=== PATIENT | male | born 1955 | race Caucasian/White ===

== ENCOUNTER 2022-11-23 19:56 | Inpatient (IN) | payer OTHER, MEDICAID ==
[~2022-11-23] VITALS: Ht 172.7 cm; Wt 74.4 kg
[2022-11-23 20:00] VITALS: BP_SYST 103; PULSE 172; RESP 38; TEMP 100.1; O2SAT 98
[2022-11-23] MEDS ORDERED: NACL 0.9% 1,000 ML IV ONE ×2 (20:15→23:00)
[2022-11-23] MEDS ORDERED: PANTOPRAZOLE SODIUM 40 MG/VIAL (PROTONIX) IVP ONE (20:15)
[2022-11-23] MEDS ORDERED: MEROPENEM 1 GM IVPB PREMIX 50 ML IV ONE (20:15)
[2022-11-23] MEDS ORDERED: MEROPENEM 1 GM VIAL IV ONE (20:54)
[2022-11-23 20:59] LABS: BASOPHILS % (AUTO) 0.3 % (0.0-2.0); EOSINOPHILS % (AUTO) 0.4 % (0.0-4.0); HEMATOCRIT 29.4 % (36-54); HEMOGLOBIN 9.3 g/dL (14.0-18.0); LYMPHOCYTES # (AUTO) 0.4 K/uL (1.0-5.5); LYMPHOCYTES % (AUTO) 4.4 % (20.5-51.5); MEAN CORPUSCULAR HEMOGLOBIN 27 pg (27-31); MEAN CORPUSCULAR HGB CONC 32 % (32-36); MEAN CORPUSCULAR VOLUME 86 fL (79.0-98.0); MONOCYTES # (AUTO) 0.1 K/uL (0.0-1.0); MONOCYTES % (AUTO) 0.6 % (1.7-9.3); NEUTROPHILS # (AUTO) 9.5 K/uL (1.8-7.7); NEUTROPHILS % (AUTO) 94.3 % (40.0-70.0); PLATELET COUNT (AUTO) 347 K/uL (130-430); RED BLOOD CELL COUNT(AUTO) 3.42 MIL/uL (4.2-6.2); RED CELL DISTRIBUTION WIDTH 17.8 % (9.0-15.0)
[2022-11-23 21:17] LABS: ALBUMIN 2.3 g/dL (3.4-4.8); CREATININE 0.91 mg/dL (0.55-1.30); TOTAL BILIRUBIN 0.9 mg/dL (0.0-1.0)
[2022-11-23 21:24] LABS: CALCIUM 9.6 mg/dL (8.4-11.0)
[2022-11-23 21:55] LABS: BILIRUBIN,URINE NEGATIVE (NEGATIVE); BLOOD, URINE 3+ (NEGATIVE); CLARITY/URINE TURBID (CLEAR); COLOR,URINE RED (YELLOW); GLUCOSE,URINE NEGATIVE (NEGATIVE); KETONES,URINE NEGATIVE (NEGATIVE); LEUKOCYTE ESTERASE ,URINE 3+ (NEGATIVE); NITRITE, URINE NEGATIVE (NEGATIVE); PH,URINE 6.5 (5.0-8.0); PROTEIN URINE 2+ (NEGATIVE); UROBILINOGEN,URINE 0.2 (0.2-1.0)
[2022-11-23] MEDS ORDERED: NOREPINEPHRINE BITARTRATE 4 MG in NS 246 ML IV ONE (22:00)
[2022-11-23 22:06] LABS: BACTERIA,URINE MODERATE /HPF (None Seen); RBC,URINE >100 /HPF (0-3); WBC,URINE 50-80 /HPF (0-3)
[2022-11-23 22:07] LABS: MUCUS,URINE None Seen /LPF (None Seen)
[2022-11-23] MEDS ORDERED: NOREPINEPHRINE 4 MG/4 ML VIAL IV ONE (22:36)
[2022-11-23] MEDS ORDERED: FAMO20TA8 PO (23:13)
[2022-11-23] MEDS ORDERED: LEVE1000 PO (23:13)
[2022-11-23] MEDS ORDERED: LIP20 PO (23:13)
[2022-11-23] MEDS ORDERED: REGL10 PO (23:13)
[2022-11-23] MEDS ORDERED: BISA-140 PO (23:13)
[2022-11-23] MEDS ORDERED: FER300L PO (23:13)
[2022-11-23] MEDS ORDERED: LANS30CA53 PO (23:13)
[2022-11-23] MEDS ORDERED: MIDO10TA PO (23:13)
[2022-11-23] MEDS ORDERED: METOCLOPRAMIDE HCL 10 MG/10 ML UDC GT PRN (23:30)
[2022-11-23] MEDS ORDERED: INSULIN REGULAR, HUMAN 100 UNITS/ML, 3 ML VIAL (humuLIN R) SUBCUT PRN (23:30)
[2022-11-23] MEDS: MIDODRINE HCL 5 MG TABLET (PROAMATINE) GT SCH (23:30)
[2022-11-23] MEDS ORDERED: BISACODYL 5 MG TABLET.DR (DULCOLAX) GT PRN (23:30)
[2022-11-23] MEDS: levETIRAcetam 500 MG TABLET GT SCH (23:30)
[2022-11-23] MEDS ORDERED: ACETAMINOPHEN 325 MG TABLET GT PRN (23:45)
[2022-11-23 23:55] VITALS: BP_SYST 105; PULSE 103
[2022-11-23 23:57] VITALS: BP_SYST 105; PULSE 103; O2SAT 97
[2022-11-24] VITALS (29 sets, daily range): BP systolic 64–145; PULSE 67–115; RESP 15–21; TEMP 97.7–98.7; O2SAT 94–99
[2022-11-24] MEDS ORDERED: NOREPINEPHRINE 4 MG/4 ML VIAL IV ONE (01:11)
[2022-11-24] MEDS ORDERED: levETIRAcetam 500 MG TABLET ONE (01:35)
[2022-11-24] MEDS ORDERED: PIPERACILLIN/TAZOBACTAM 3.375 GM/VIAL (ZOSYN) IV ONE (02:11)
[2022-11-24 05:10] LABS: BASOPHILS # (AUTO) 0.1 K/uL (0.0-0.2); BASOPHILS % (AUTO) 0.3 % (0.0-2.0); HEMATOCRIT 24.4 % (36-54); HEMOGLOBIN 7.6 g/dL (14.0-18.0); LYMPHOCYTES # (AUTO) 0.6 K/uL (1.0-5.5); LYMPHOCYTES % (AUTO) 1.8 % (20.5-51.5); MEAN CORPUSCULAR HEMOGLOBIN 26 pg (27-31); MEAN CORPUSCULAR HGB CONC 31 % (32-36); MEAN CORPUSCULAR VOLUME 85 fL (79.0-98.0); MONOCYTES # (AUTO) 1.2 K/uL (0.0-1.0); MONOCYTES % (AUTO) 3.8 % (1.7-9.3); NEUTROPHILS # (AUTO) 28.6 K/uL (1.8-7.7); NEUTROPHILS % (AUTO) 94.1 % (40.0-70.0); PLATELET COUNT (AUTO) 234 K/uL (130-430); RED BLOOD CELL COUNT(AUTO) 2.86 MIL/uL (4.2-6.2)
[2022-11-24 05:35] LABS: WHITE BLOOD COUNT (AUTO) 30.4 K/uL (4.8-10.8)
[2022-11-24 05:41] LABS: ALBUMIN 1.9 g/dL (3.4-4.8); CALCIUM 8.1 mg/dL (8.4-11.0); CREATININE 0.82 mg/dL (0.55-1.30); TOTAL BILIRUBIN 0.9 mg/dL (0.0-1.0)
[2022-11-24] MEDS: PIPERACILLIN/TAZO 3.375/DEX-IS 50 ML IV SCH ×4 (06:04→17:30)
[2022-11-24 08:46] LABS: INR 1.1 (0.80-1.20); PROTHROMBIN TIME 11.5 SECS (9.5-12.5)
[2022-11-24] MEDS ORDERED: VANCOMYCIN HCL 1,250 MG in NS 250 ML IV SCH (09:00)
[2022-11-24] MEDS ORDERED: RIVAROXABAN 10 MG TABLET GT SCH (09:00)
[2022-11-24] MEDS: VANCOMYCIN HCL 1,000 MG in NS 250 ML IV SCH ×2 (09:40→21:25)
[2022-11-24] MEDS: levETIRAcetam 500 MG TABLET GT SCH ×2 (09:40→21:23)
[2022-11-24] MEDS: FERROUS SULFATE 300 MG/5 ML UDC GT SCH (09:41)
[2022-11-24] MEDS: ASCORBIC ACID 500 MG TABLET GT SCH ×2 (09:41→21:24)
[2022-11-24] MEDS: FAMOTIDINE 20 MG TABLET GT SCH (09:41)
[2022-11-24] MEDS: DOCUSATE SODIUM 100 MG/10 ML UDC GT SCH ×2 (09:41→21:22)
[2022-11-24] MEDS: ATORVASTATIN 20 MG TABLET GT SCH (09:41)
[2022-11-24] MEDS: LANSOPRAZOLE 30 MG CAPSULE.DR GT SCH (09:41)
[2022-11-24] MEDS: MIDODRINE HCL 5 MG TABLET (PROAMATINE) GT SCH ×3 (09:42→21:24)
[2022-11-24] MEDS: INSULIN GLARGINE 100 UNITS/ML, 10 ML VIAL SUBCUT SCH ×2 (09:59→22:03)
[2022-11-24] MEDS ORDERED: NOREPINEPHRINE BITARTRATE 4 MG in NS 246 ML IV PRN (12:15)
[2022-11-24] MEDS ORDERED: NACL 0.9% 1,000 ML IV ONE (14:15)
[2022-11-24] MEDS: ALBUMIN HUMAN 25% 100 ML IV SCH ×2 (15:11→21:22)
[2022-11-25] VITALS (36 sets, daily range): BP systolic 98–153; PULSE 59–95; RESP 12–20; TEMP 97–98.2; O2SAT 94–99
[2022-11-25] MEDS: PIPERACILLIN/TAZO 3.375/DEX-IS 50 ML IV SCH ×5 (01:06→23:58)
[2022-11-25 04:49] LABS: BASOPHILS % (AUTO) 0.2 % (0.0-2.0); EOSINOPHILS # (AUTO) 0.1 K/uL (0.0-0.4); EOSINOPHILS % (AUTO) 0.5 % (0.0-4.0); HEMATOCRIT 22.1 % (36-54); LYMPHOCYTES # (AUTO) 1.3 K/uL (1.0-5.5); LYMPHOCYTES % (AUTO) 7.5 % (20.5-51.5); MEAN CORPUSCULAR HEMOGLOBIN 27 pg (27-31); MEAN CORPUSCULAR HGB CONC 32 % (32-36); MEAN CORPUSCULAR VOLUME 84 fL (79.0-98.0); MONOCYTES # (AUTO) 0.8 K/uL (0.0-1.0); MONOCYTES % (AUTO) 4.4 % (1.7-9.3); NEUTROPHILS # (AUTO) 15.1 K/uL (1.8-7.7); NEUTROPHILS % (AUTO) 87.4 % (40.0-70.0); PLATELET COUNT (AUTO) 184 K/uL (130-430); RED BLOOD CELL COUNT(AUTO) 2.62 MIL/uL (4.2-6.2); RED CELL DISTRIBUTION WIDTH 17.6 % (9.0-15.0); WHITE BLOOD COUNT (AUTO) 17.3 K/uL (4.8-10.8)
[2022-11-25] MEDS: ALBUMIN HUMAN 25% 100 ML IV SCH (05:11)
[2022-11-25 05:34] LABS: ALBUMIN 2.6 g/dL (3.4-4.8); CALCIUM 8.3 mg/dL (8.4-11.0); CREATININE 0.78 mg/dL (0.55-1.30); TOTAL BILIRUBIN 1.1 mg/dL (0.0-1.0)
[2022-11-25] MEDS ORDERED: POTASSIUM CHLORIDE 20 MEQ/PKT PACKET GT ONE (06:30)
[2022-11-25] MEDS ORDERED: POTASSIUM CHLORIDE 40 MEQ in NS 250 ML IV ONE (06:30)
[2022-11-25] MEDS: INSULIN GLARGINE 100 UNITS/ML, 10 ML VIAL SUBCUT SCH ×2 (09:00→21:00)
[2022-11-25] MEDS: FERROUS SULFATE 300 MG/5 ML UDC GT SCH (10:00)
[2022-11-25] MEDS: DOCUSATE SODIUM 100 MG/10 ML UDC GT SCH ×2 (10:01→21:57)
[2022-11-25] MEDS: LANSOPRAZOLE 30 MG CAPSULE.DR GT SCH (10:02)
[2022-11-25] MEDS: ASCORBIC ACID 500 MG TABLET GT SCH ×2 (10:02→21:59)
[2022-11-25] MEDS: levETIRAcetam 500 MG TABLET GT SCH ×2 (10:02→21:57)
[2022-11-25] MEDS: ATORVASTATIN 20 MG TABLET GT SCH (10:02)
[2022-11-25] MEDS ORDERED: POTASSIUM CHLORIDE 20 MEQ/PKT PACKET ONE ×2 (10:02→12:32)
[2022-11-25] MEDS: FAMOTIDINE 20 MG TABLET GT SCH (10:02)
[2022-11-25] MEDS: MIDODRINE HCL 5 MG TABLET (PROAMATINE) GT SCH ×3 (10:03→21:58)
[2022-11-25] MEDS ORDERED: POTASSIUM CHLORIDE 20 MEQ in NACL 0.9% 1,000 ML IV SCH (15:00)
[2022-11-25 17:28] LABS: BASOPHILS % (AUTO) 0.3 % (0.0-2.0); EOSINOPHILS # (AUTO) 0.1 K/uL (0.0-0.4); EOSINOPHILS % (AUTO) 0.5 % (0.0-4.0); HEMATOCRIT 29.3 % (36-54); HEMOGLOBIN 9.2 g/dL (14.0-18.0); LYMPHOCYTES # (AUTO) 0.9 K/uL (1.0-5.5); MEAN CORPUSCULAR HEMOGLOBIN 27 pg (27-31); MEAN CORPUSCULAR HGB CONC 31 % (32-36); MEAN CORPUSCULAR VOLUME 86 fL (79.0-98.0); MONOCYTES # (AUTO) 0.4 K/uL (0.0-1.0); MONOCYTES % (AUTO) 3.4 % (1.7-9.3); NEUTROPHILS # (AUTO) 11.7 K/uL (1.8-7.7); NEUTROPHILS % (AUTO) 88.8 % (40.0-70.0); PLATELET COUNT (AUTO) 173 K/uL (130-430); RED BLOOD CELL COUNT(AUTO) 3.41 MIL/uL (4.2-6.2); RED CELL DISTRIBUTION WIDTH 16.7 % (9.0-15.0); WHITE BLOOD COUNT (AUTO) 13.2 K/uL (4.8-10.8)
[2022-11-25 17:49] LABS: ALBUMIN 2.5 g/dL (3.4-4.8); CALCIUM 8.4 mg/dL (8.4-11.0); CREATININE 0.69 mg/dL (0.55-1.30); TOTAL BILIRUBIN 1.3 mg/dL (0.0-1.0)
[2022-11-26] VITALS (35 sets, daily range): BP systolic 106–134; PULSE 53–97; RESP 20–35; TEMP 97–98.1; O2SAT 95–98
[2022-11-26 05:06] LABS: BASOPHILS % (AUTO) 0.4 % (0.0-2.0); EOSINOPHILS # (AUTO) 0.2 K/uL (0.0-0.4); EOSINOPHILS % (AUTO) 2.1 % (0.0-4.0); HEMATOCRIT 31.4 % (36-54); HEMOGLOBIN 10.1 g/dL (14.0-18.0); LYMPHOCYTES # (AUTO) 1.3 K/uL (1.0-5.5); LYMPHOCYTES % (AUTO) 12.3 % (20.5-51.5); MEAN CORPUSCULAR HEMOGLOBIN 28 pg (27-31); MEAN CORPUSCULAR HGB CONC 32 % (32-36); MEAN CORPUSCULAR VOLUME 86 fL (79.0-98.0); MONOCYTES # (AUTO) 0.4 K/uL (0.0-1.0); MONOCYTES % (AUTO) 4.2 % (1.7-9.3); NEUTROPHILS # (AUTO) 8.6 K/uL (1.8-7.7); PLATELET COUNT (AUTO) 176 K/uL (130-430); RED BLOOD CELL COUNT(AUTO) 3.66 MIL/uL (4.2-6.2); RED CELL DISTRIBUTION WIDTH 16.5 % (9.0-15.0); WHITE BLOOD COUNT (AUTO) 10.6 K/uL (4.8-10.8)
[2022-11-26 05:36] LABS: ALBUMIN 2.3 g/dL (3.4-4.8); CALCIUM 8.4 mg/dL (8.4-11.0); CREATININE 0.7 mg/dL (0.55-1.30); TOTAL BILIRUBIN 1.5 mg/dL (0.0-1.0)
[2022-11-26] MEDS: INSULIN GLARGINE 100 UNITS/ML, 10 ML VIAL SUBCUT SCH ×2 (09:00→22:19)
[2022-11-26] MEDS: DOCUSATE SODIUM 100 MG/10 ML UDC GT SCH ×2 (09:38→21:00)
[2022-11-26] MEDS: FAMOTIDINE 20 MG TABLET GT SCH (09:38)
[2022-11-26] MEDS: ATORVASTATIN 20 MG TABLET GT SCH (09:38)
[2022-11-26] MEDS: FERROUS SULFATE 300 MG/5 ML UDC GT SCH (09:38)
[2022-11-26] MEDS: levETIRAcetam 500 MG TABLET GT SCH ×2 (09:38→22:16)
[2022-11-26] MEDS: LANSOPRAZOLE 30 MG CAPSULE.DR GT SCH (09:38)
[2022-11-26] MEDS: MIDODRINE HCL 5 MG TABLET (PROAMATINE) GT SCH ×3 (09:38→22:17)
[2022-11-26] MEDS: ASCORBIC ACID 500 MG TABLET GT SCH ×2 (09:38→22:17)
[2022-11-26] MEDS: PIPERACILLIN/TAZO 3.375/DEX-IS 50 ML IV SCH (12:42)
[2022-11-26] MEDS: MEROPENEM 1 GM in NS 100 ML IV SCH ×2 (14:22→22:20)
[2022-11-26] MEDS: 0.45% NACL 1,000 ML IV SCH (14:23)
[2022-11-27] VITALS (37 sets, daily range): BP systolic 121–167; PULSE 53–98; RESP 20–23; TEMP 97.6–98.4; O2SAT 94–99
[2022-11-27] MEDS: 0.45% NACL 1,000 ML IV SCH ×3 (00:15→21:05)
[2022-11-27 05:28] LABS: BASOPHILS # (AUTO) 0.1 K/uL (0.0-0.2); BASOPHILS % (AUTO) 0.5 % (0.0-2.0); EOSINOPHILS # (AUTO) 0.3 K/uL (0.0-0.4); EOSINOPHILS % (AUTO) 3.2 % (0.0-4.0); HEMATOCRIT 31.5 % (36-54); HEMOGLOBIN 10.2 g/dL (14.0-18.0); LYMPHOCYTES # (AUTO) 1.7 K/uL (1.0-5.5); LYMPHOCYTES % (AUTO) 17.7 % (20.5-51.5); MEAN CORPUSCULAR HEMOGLOBIN 28 pg (27-31); MEAN CORPUSCULAR HGB CONC 32 % (32-36); MEAN CORPUSCULAR VOLUME 85 fL (79.0-98.0); MONOCYTES # (AUTO) 0.5 K/uL (0.0-1.0); NEUTROPHILS # (AUTO) 7.1 K/uL (1.8-7.7); NEUTROPHILS % (AUTO) 73.6 % (40.0-70.0); PLATELET COUNT (AUTO) 204 K/uL (130-430); RED BLOOD CELL COUNT(AUTO) 3.69 MIL/uL (4.2-6.2); RED CELL DISTRIBUTION WIDTH 16.5 % (9.0-15.0); WHITE BLOOD COUNT (AUTO) 9.7 K/uL (4.8-10.8)
[2022-11-27] MEDS: MEROPENEM 1 GM in NS 100 ML IV SCH ×3 (06:01→21:07)
[2022-11-27 06:15] LABS: ALBUMIN 2.2 g/dL (3.4-4.8); CALCIUM 8.5 mg/dL (8.4-11.0); CREATININE 0.68 mg/dL (0.55-1.30); TOTAL BILIRUBIN 1.5 mg/dL (0.0-1.0)
[2022-11-27 06:49] LABS: TOTAL IRON BIND. CAPACITY 175 ug/dL (250-450)
[2022-11-27] MEDS: ATORVASTATIN 20 MG TABLET GT SCH (08:21)
[2022-11-27] MEDS: DOCUSATE SODIUM 100 MG/10 ML UDC GT SCH ×2 (08:21→21:06)
[2022-11-27] MEDS: FAMOTIDINE 20 MG TABLET GT SCH (08:21)
[2022-11-27] MEDS: LANSOPRAZOLE 30 MG CAPSULE.DR GT SCH (08:21)
[2022-11-27] MEDS: FERROUS SULFATE 300 MG/5 ML UDC GT SCH (08:21)
[2022-11-27] MEDS: ASCORBIC ACID 500 MG TABLET GT SCH ×2 (08:21→21:06)
[2022-11-27] MEDS: levETIRAcetam 500 MG TABLET GT SCH ×2 (08:21→21:06)
[2022-11-27] MEDS: MIDODRINE HCL 5 MG TABLET (PROAMATINE) GT SCH ×3 (08:21→21:06)
[2022-11-27] MEDS: INSULIN GLARGINE 100 UNITS/ML, 10 ML VIAL SUBCUT SCH ×2 (08:34→22:02)
[2022-11-27] MEDS ORDERED: POTASSIUM CHLORIDE 20 MEQ/PKT PACKET PO ONE (10:00)
[2022-11-28] VITALS (36 sets, daily range): BP systolic 126–173; PULSE 67–105; RESP 19–28; TEMP 97.6–98; O2SAT 96–100
[2022-11-28 05:38] LABS: BASOPHILS % (AUTO) 0.4 % (0.0-2.0); EOSINOPHILS # (AUTO) 0.2 K/uL (0.0-0.4); HEMATOCRIT 34.1 % (36-54); HEMOGLOBIN 10.8 g/dL (14.0-18.0); LYMPHOCYTES # (AUTO) 1.5 K/uL (1.0-5.5); LYMPHOCYTES % (AUTO) 18.2 % (20.5-51.5); MEAN CORPUSCULAR HEMOGLOBIN 27 pg (27-31); MEAN CORPUSCULAR HGB CONC 32 % (32-36); MEAN CORPUSCULAR VOLUME 86 fL (79.0-98.0); MONOCYTES # (AUTO) 0.4 K/uL (0.0-1.0); MONOCYTES % (AUTO) 5.1 % (1.7-9.3); NEUTROPHILS # (AUTO) 6.3 K/uL (1.8-7.7); NEUTROPHILS % (AUTO) 74.3 % (40.0-70.0); PLATELET COUNT (AUTO) 197 K/uL (130-430); RED BLOOD CELL COUNT(AUTO) 3.99 MIL/uL (4.2-6.2); RED CELL DISTRIBUTION WIDTH 16.3 % (9.0-15.0); WHITE BLOOD COUNT (AUTO) 8.5 K/uL (4.8-10.8)
[2022-11-28 06:01] LABS: ALBUMIN 2.2 g/dL (3.4-4.8); CALCIUM 8.6 mg/dL (8.4-11.0); CREATININE 0.63 mg/dL (0.55-1.30); TOTAL BILIRUBIN 1.1 mg/dL (0.0-1.0)
[2022-11-28] MEDS: MEROPENEM 1 GM in NS 100 ML IV SCH ×3 (06:12→21:53)
[2022-11-28] MEDS: 0.45% NACL 1,000 ML IV SCH ×2 (07:14→15:58)
[2022-11-28 08:07] LABS: FERRITIN 792 ng/mL (30-400)
[2022-11-28] MEDS: levETIRAcetam 500 MG TABLET GT SCH ×2 (08:52→21:53)
[2022-11-28] MEDS: ATORVASTATIN 20 MG TABLET GT SCH (08:52)
[2022-11-28] MEDS: FERROUS SULFATE 300 MG/5 ML UDC GT SCH (08:52)
[2022-11-28] MEDS: FAMOTIDINE 20 MG TABLET GT SCH (08:52)
[2022-11-28] MEDS: LANSOPRAZOLE 30 MG CAPSULE.DR GT SCH (08:52)
[2022-11-28] MEDS: ASCORBIC ACID 500 MG TABLET GT SCH ×2 (08:52→21:53)
[2022-11-28] MEDS: DOCUSATE SODIUM 100 MG/10 ML UDC GT SCH ×2 (08:52→21:53)
[2022-11-28] MEDS: INSULIN GLARGINE 100 UNITS/ML, 10 ML VIAL SUBCUT SCH ×2 (08:53→21:54)
[2022-11-28] MEDS: BALSAM PERU/CASTOR OIL 56.7 GM OINT...G. TP SCH (08:54)
[2022-11-28] MEDS: MIDODRINE HCL 5 MG TABLET (PROAMATINE) GT SCH (09:00)
[2022-11-28 10:07] LABS: FOLATE (FOLIC ACID) >20.0 ng/mL (>3.0)
[2022-11-28] MEDS ORDERED: LOSARTAN POTASSIUM 50 MG TABLET (COZAAR) PO ONE (12:00)
[2022-11-28] MEDS: VANCOMYCIN HCL 1,250 MG in NS 250 ML IV SCH (15:03)
[2022-11-28] MEDS ORDERED: LOSARTAN POTASSIUM 50 MG TABLET (COZAAR) PO SCH (21:00)
[2022-11-29] VITALS (36 sets, daily range): BP systolic 97–148; PULSE 68–103; RESP 15–28; TEMP 97.5–98.1; O2SAT 96–99
[2022-11-29] MEDS ORDERED: LOSARTAN POTASSIUM 50 MG TABLET (COZAAR) GT PRN
[2022-11-29] MEDS: 0.45% NACL 1,000 ML IV SCH ×2 (01:09→12:05)
[2022-11-29] MEDS: VANCOMYCIN HCL 1,250 MG in NS 250 ML IV SCH ×2 (02:48→15:20)
[2022-11-29 05:27] LABS: BASOPHILS % (AUTO) 0.4 % (0.0-2.0); CALCIUM 8.2 mg/dL (8.4-11.0); CREATININE 0.8 mg/dL (0.55-1.30); EOSINOPHILS # (AUTO) 0.2 K/uL (0.0-0.4); EOSINOPHILS % (AUTO) 2.2 % (0.0-4.0); HEMATOCRIT 32.3 % (36-54); HEMOGLOBIN 10.3 g/dL (14.0-18.0); LYMPHOCYTES # (AUTO) 1.7 K/uL (1.0-5.5); LYMPHOCYTES % (AUTO) 18.7 % (20.5-51.5); MEAN CORPUSCULAR HEMOGLOBIN 27 pg (27-31); MEAN CORPUSCULAR HGB CONC 32 % (32-36); MEAN CORPUSCULAR VOLUME 86 fL (79.0-98.0); MONOCYTES # (AUTO) 0.5 K/uL (0.0-1.0); MONOCYTES % (AUTO) 6.1 % (1.7-9.3); NEUTROPHILS # (AUTO) 6.5 K/uL (1.8-7.7); NEUTROPHILS % (AUTO) 72.6 % (40.0-70.0); PLATELET COUNT (AUTO) 191 K/uL (130-430); RED BLOOD CELL COUNT(AUTO) 3.77 MIL/uL (4.2-6.2); RED CELL DISTRIBUTION WIDTH 16.6 % (9.0-15.0)
[2022-11-29] MEDS: MEROPENEM 1 GM in NS 100 ML IV SCH ×3 (05:40→22:27)
[2022-11-29] MEDS: DOCUSATE SODIUM 100 MG/10 ML UDC GT SCH ×2 (08:20→21:13)
[2022-11-29] MEDS: LANSOPRAZOLE 30 MG CAPSULE.DR GT SCH (08:21)
[2022-11-29] MEDS: levETIRAcetam 500 MG TABLET GT SCH ×2 (08:21→21:12)
[2022-11-29] MEDS: FERROUS SULFATE 300 MG/5 ML UDC GT SCH (08:21)
[2022-11-29] MEDS: FAMOTIDINE 20 MG TABLET GT SCH (08:22)
[2022-11-29] MEDS: ATORVASTATIN 20 MG TABLET GT SCH (08:22)
[2022-11-29] MEDS: BALSAM PERU/CASTOR OIL 56.7 GM OINT...G. TP SCH (08:23)
[2022-11-29] MEDS: ASCORBIC ACID 500 MG TABLET GT SCH ×2 (08:23→21:13)
[2022-11-29] MEDS: INSULIN GLARGINE 100 UNITS/ML, 10 ML VIAL SUBCUT SCH ×2 (08:26→21:17)
[2022-11-30] VITALS (34 sets, daily range): BP systolic 113–149; PULSE 66–97; RESP 14–22; TEMP 97–97.8; O2SAT 95–100
[2022-11-30] MEDS: VANCOMYCIN HCL 1,250 MG in NS 250 ML IV SCH ×2 (03:30→15:21)
[2022-11-30 04:16] LABS: BASOPHILS % (AUTO) 0.3 % (0.0-2.0); EOSINOPHILS # (AUTO) 0.3 K/uL (0.0-0.4); EOSINOPHILS % (AUTO) 4.1 % (0.0-4.0); HEMATOCRIT 31.5 % (36-54); HEMOGLOBIN 10.1 g/dL (14.0-18.0); LYMPHOCYTES # (AUTO) 1.5 K/uL (1.0-5.5); MEAN CORPUSCULAR HEMOGLOBIN 28 pg (27-31); MEAN CORPUSCULAR HGB CONC 32 % (32-36); MEAN CORPUSCULAR VOLUME 86 fL (79.0-98.0); MONOCYTES # (AUTO) 0.5 K/uL (0.0-1.0); MONOCYTES % (AUTO) 5.8 % (1.7-9.3); NEUTROPHILS # (AUTO) 5.7 K/uL (1.8-7.7); NEUTROPHILS % (AUTO) 70.8 % (40.0-70.0); PLATELET COUNT (AUTO) 182 K/uL (130-430); RED BLOOD CELL COUNT(AUTO) 3.66 MIL/uL (4.2-6.2); RED CELL DISTRIBUTION WIDTH 16.2 % (9.0-15.0)
[2022-11-30 04:34] LABS: CALCIUM 8.3 mg/dL (8.4-11.0); CREATININE 0.68 mg/dL (0.55-1.30)
[2022-11-30] MEDS: MEROPENEM 1 GM in NS 100 ML IV SCH ×3 (06:11→21:38)
[2022-11-30] MEDS: 0.45% NACL 1,000 ML IV SCH (07:43)
[2022-11-30] MEDS: DOCUSATE SODIUM 100 MG/10 ML UDC GT SCH ×2 (08:08→21:37)
[2022-11-30] MEDS: levETIRAcetam 500 MG TABLET GT SCH ×2 (08:09→21:37)
[2022-11-30] MEDS: FAMOTIDINE 20 MG TABLET GT SCH (08:09)
[2022-11-30] MEDS: ATORVASTATIN 20 MG TABLET GT SCH (08:09)
[2022-11-30] MEDS: FERROUS SULFATE 300 MG/5 ML UDC GT SCH (08:09)
[2022-11-30] MEDS: LANSOPRAZOLE 30 MG CAPSULE.DR GT SCH (08:09)
[2022-11-30] MEDS: ASCORBIC ACID 500 MG TABLET GT SCH ×2 (08:09→21:37)
[2022-11-30] MEDS: BALSAM PERU/CASTOR OIL 56.7 GM OINT...G. TP SCH (08:11)
[2022-11-30] MEDS: INSULIN GLARGINE 100 UNITS/ML, 10 ML VIAL SUBCUT SCH ×2 (08:11→21:41)
[2022-11-30] MEDS ORDERED: POTASSIUM CHLORIDE 20 MEQ/PKT PACKET GT ONE (15:45)
[2022-12-01] VITALS (28 sets, daily range): BP systolic 119–158; PULSE 70–113; RESP 14–27; TEMP 96.6–97.7; O2SAT 93–99
[2022-12-01 05:09] LABS: BASOPHILS % (AUTO) 0.4 % (0.0-2.0); EOSINOPHILS # (AUTO) 0.3 K/uL (0.0-0.4); HEMATOCRIT 32.9 % (36-54); HEMOGLOBIN 10.6 g/dL (14.0-18.0); LYMPHOCYTES # (AUTO) 2.1 K/uL (1.0-5.5); MEAN CORPUSCULAR HEMOGLOBIN 28 pg (27-31); MEAN CORPUSCULAR HGB CONC 32 % (32-36); MEAN CORPUSCULAR VOLUME 86 fL (79.0-98.0); MONOCYTES # (AUTO) 0.5 K/uL (0.0-1.0); MONOCYTES % (AUTO) 5.5 % (1.7-9.3); NEUTROPHILS # (AUTO) 5.5 K/uL (1.8-7.7); NEUTROPHILS % (AUTO) 65.1 % (40.0-70.0); PLATELET COUNT (AUTO) 215 K/uL (130-430); RED BLOOD CELL COUNT(AUTO) 3.84 MIL/uL (4.2-6.2); RED CELL DISTRIBUTION WIDTH 16.6 % (9.0-15.0); WHITE BLOOD COUNT (AUTO) 8.4 K/uL (4.8-10.8)
[2022-12-01] MEDS: MEROPENEM 1 GM in NS 100 ML IV SCH ×2 (05:52→13:20)
[2022-12-01 06:12] LABS: ALBUMIN 2.3 g/dL (3.4-4.8); CALCIUM 8.6 mg/dL (8.4-11.0); CREATININE 0.61 mg/dL (0.55-1.30); TOTAL BILIRUBIN 0.7 mg/dL (0.0-1.0)
[2022-12-01] MEDS: LANSOPRAZOLE 30 MG CAPSULE.DR GT SCH (08:36)
[2022-12-01] MEDS: DOCUSATE SODIUM 100 MG/10 ML UDC GT SCH (08:36)
[2022-12-01] MEDS: FAMOTIDINE 20 MG TABLET GT SCH (08:36)
[2022-12-01] MEDS: levETIRAcetam 500 MG TABLET GT SCH (08:36)
[2022-12-01] MEDS: ASCORBIC ACID 500 MG TABLET GT SCH (08:36)
[2022-12-01] MEDS: FERROUS SULFATE 300 MG/5 ML UDC GT SCH (08:36)
[2022-12-01] MEDS: ATORVASTATIN 20 MG TABLET GT SCH (08:36)
[2022-12-01] MEDS: 0.45% NACL 1,000 ML IV SCH (08:39)
[2022-12-01] MEDS: INSULIN GLARGINE 100 UNITS/ML, 10 ML VIAL SUBCUT SCH (08:41)
[2022-12-01] MEDS: BALSAM PERU/CASTOR OIL 56.7 GM OINT...G. TP SCH (08:42)
[2022-12-01] MEDS ORDERED: VANCOMYCIN HCL 750 MG in NS 250 ML IV SCH (09:00)
== END 2022-12-01 17:54 | DRG 870 ==
LOC: SED 19:56 → SIC 22:55
PROVIDERS: ADMIT Family Medicine; ATTEND Family Medicine
PROC: 5A1955Z Respiratory Ventilation, Greater than 96 Consecutive Hours (ICD-10-PCS; principal; 2022-11-23)
PROC: 05HY33Z Insertion of Infusion Device into Upper Vein, Percutaneous Approach (ICD-10-PCS; 2022-11-23)
PROC: 30233N1 Transfusion of Nonautologous Red Blood Cells into Peripheral Vein, Percutaneous Approach (ICD-10-PCS; 2022-11-25)
DX: A41.51 Sepsis due to Escherichia coli [E. coli] (principal); J18.9 Pneumonia, unspecified organism; R65.21 Severe sepsis with septic shock; J96.20 Acute and chronic respiratory failure, unspecified whether with hypoxia or hypercapnia; N39.0 Urinary tract infection, site not specified; Z99.11 Dependence on respirator [ventilator] status; G93.49 Other encephalopathy; I48.91 Unspecified atrial fibrillation; E78.5 Hyperlipidemia, unspecified; K21.9 Gastro-esophageal reflux disease without esophagitis; F41.9 Anxiety disorder, unspecified; I10 Essential (primary) hypertension; G40.909 Epilepsy, unspecified, not intractable, without status epilepticus; D64.9 Anemia, unspecified; R13.10 Dysphagia, unspecified; E87.6 Hypokalemia; Z66 Do not resuscitate; E11.9 Type 2 diabetes mellitus without complications; Z93.0 Tracheostomy status; Z87.440 Personal history of urinary (tract) infections; Z86.73 Personal history of transient ischemic attack (TIA), and cerebral infarction without residual deficits; Z86.16 Personal history of COVID-19; Z79.01 Long term (current) use of anticoagulants; B95.62 Methicillin resistant Staphylococcus aureus infection as the cause of diseases classified elsewhere; R53.81 Other malaise
CPT/HCPCS: 36415; 36600; 71045; 80048; 80053; 80202; 81000; 82607; 82728; 82746; 82803; 82962; 83037; 83540; 83550; 83605; 85025; 85610-TC; 85730-TC; 86886; 86900; 86901; 86920; 87040; 87070-TC; 87086; 87186-TC; 87205-TC; 94002; 94003; 94640; 96361; 96374; 96375; 99291; C9113; J1815; J2185; J2543; J3370; J3480; J7030; J7040; J7050; P9021

== ENCOUNTER 2023-02-02 11:58 | Inpatient (IN) | payer OTHER, MEDICAID ==
[~2023-02-02] VITALS: Ht 175.3 cm; Wt 88.0 kg
[~2023-02-02 11:58] MED LIST: BISA-140 PO; FAMO20TA8 PO; FER300L PO; LANS30CA53 PO; LEVE1000 PO; LIP20 PO; REGL10 PO
[2023-02-02 13:44] LABS: BASOPHILS % (AUTO) 0.3 % (0.0-2.0); EOSINOPHILS # (AUTO) 0.1 K/uL (0.0-0.4); EOSINOPHILS % (AUTO) 0.5 % (0.0-4.0); HEMATOCRIT 33.5 % (36-54); HEMOGLOBIN 10.5 g/dL (14.0-18.0); LYMPHOCYTES # (AUTO) 1.3 K/uL (1.0-5.5); LYMPHOCYTES % (AUTO) 9.8 % (20.5-51.5); MEAN CORPUSCULAR HEMOGLOBIN 27 pg (27-31); MEAN CORPUSCULAR HGB CONC 31 % (32-36); MEAN CORPUSCULAR VOLUME 85 fL (79.0-98.0); MONOCYTES # (AUTO) 0.7 K/uL (0.0-1.0); MONOCYTES % (AUTO) 5.3 % (1.7-9.3); NEUTROPHILS # (AUTO) 10.9 K/uL (1.8-7.7); NEUTROPHILS % (AUTO) 84.1 % (40.0-70.0); PLATELET COUNT (AUTO) 198 K/uL (130-430); RED BLOOD CELL COUNT(AUTO) 3.92 MIL/uL (4.2-6.2); RED CELL DISTRIBUTION WIDTH 17.1 % (9.0-15.0)
[2023-02-02 14:10] VITALS: BP_SYST 96; PULSE 127; RESP 18; TEMP 99.5
[2023-02-02 14:15] LABS: CALCIUM 9.3 mg/dL (8.4-11.0); CREATININE 1.18 mg/dL (0.55-1.30); POTASSIUM 3.3 mmol/L (3.5-5.1)
[2023-02-02 14:20] LABS: ALBUMIN 1.8 g/dL (3.4-4.8); TOTAL BILIRUBIN 0.5 mg/dL (0.0-1.0); TOTAL PROTEIN, SERUM 8.7 g/dL (6.4-8.3)
[2023-02-02] MEDS ORDERED: NS 1000 ML IV.SOLN IV ONE (14:30)
[2023-02-02] MEDS ORDERED: PIPERACILLIN/TAZO 3.375 GM in D5W 50 ML IV ONE (14:30)
[2023-02-02 14:36] LABS: INR 1.1 (0.80-1.20); PROTHROMBIN TIME 11.5 SECS (9.5-12.5)
[2023-02-02] MEDS ORDERED: ACET160O10 GT (14:41)
[2023-02-02] MEDS ORDERED: FAMO40TA7 GT (14:41)
[2023-02-02] MEDS ORDERED: LANS30CA56 GT (14:41)
[2023-02-02] MEDS ORDERED: INSU100V7 SQ (14:41)
[2023-02-02] MEDS ORDERED: ZINC220T4 GT (14:41)
[2023-02-02] MEDS ORDERED: ALBU2.5V7 INH (14:41)
[2023-02-02] MEDS ORDERED: ASCO500C18 GT (14:41)
[2023-02-02] MEDS ORDERED: MULT1CAP34 GT (14:41)
[2023-02-02] MEDS ORDERED: DOCU-192 GT (14:41)
[2023-02-02] MEDS ORDERED: LOSA50TA28 GT (14:41)
[2023-02-02] MEDS ORDERED: INSU100V9 SQ (14:41)
[2023-02-02] MEDS ORDERED: CRAN450C GT (14:41)
[2023-02-02] MEDS ORDERED: PIPERACILLIN/TAZOBACTAM 3.375 GM/VIAL (ZOSYN) IV ONE (15:16)
[2023-02-02] MEDS ORDERED: NS 500 ML IV ONE (15:45)
[2023-02-02] MEDS ORDERED: NOREPINEPHRINE BITARTRATE 4 MG in NS 246 ML IV ONE (16:00)
[2023-02-02] MEDS: NACL 0.9% 1,000 ML IV SCH (18:36)
[2023-02-02 19:00] VITALS: BP_SYST 92; PULSE 122
[2023-02-02] MEDS ORDERED: ALBUTEROL SULFATE 0.083% 2.5 MG/3 ML VIAL.NEB INH PRN (20:00)
[2023-02-02] MEDS ORDERED: ACETAMINOPHEN GT SCH (20:00)
[2023-02-02] MEDS ORDERED: POTASSIUM CHLORIDE 20 MEQ/PKT PACKET GT ONE (20:30)
[2023-02-02] MEDS: ASCORBIC ACID 500 MG TABLET GT SCH (21:00)
[2023-02-02] MEDS ORDERED: NON-FORMULARY MEDICATION (Ascorbic Acid (Vitamin C) 1 CAP) GT SCH (21:00)
[2023-02-02] MEDS: CEFEPIME 1 GM in D5W 50 ML IV SCH (21:58)
[2023-02-02] MEDS: INSULIN GLARGINE 100 UNITS/ML, 10 ML VIAL SQ SCH (22:14)
[2023-02-02] MEDS: ENOXAPARIN SODIUM 30 MG/0.3 ML SYRINGE SUBCUT SCH (22:16)
[2023-02-02] MEDS: VANCOMYCIN HCL 750 MG in NS 250 ML IV SCH (22:19)
[2023-02-02] MEDS: DOCUSATE SODIUM 100 MG CAPSULE PO SCH (22:40)
[2023-02-02] MEDS: levETIRAcetam 500 MG TABLET PO SCH (22:41)
[2023-02-02 23:00] VITALS: BP_SYST 118; PULSE 125
[2023-02-02 23:12] LABS: BILIRUBIN,URINE NEGATIVE (NEGATIVE); BLOOD, URINE 3+ (NEGATIVE); CLARITY/URINE CLOUDY (CLEAR); GLUCOSE,URINE NEGATIVE (NEGATIVE); KETONES,URINE NEGATIVE (NEGATIVE); LEUKOCYTE ESTERASE ,URINE 3+ (NEGATIVE); NITRITE, URINE NEGATIVE (NEGATIVE); PROTEIN URINE 2+ (NEGATIVE); UROBILINOGEN,URINE 0.2 (0.2-1.0)
[2023-02-02 23:14] LABS: COLOR,URINE AMBER (YELLOW)
[2023-02-02] MEDS ORDERED: METOCLOPRAMIDE HCL 10 MG/10 ML UDC ONE (23:18)
[2023-02-02 23:25] VITALS: BP_SYST 104; PULSE 122; O2SAT 96
[2023-02-02 23:27] LABS: BACTERIA,URINE FEW /HPF (None Seen); MUCUS,URINE None Seen /LPF (None Seen); RBC,URINE >100 /HPF (0-3); WBC,URINE >100 /HPF (0-3)
[2023-02-02] MEDS: METOCLOPRAMIDE HCL 10 MG/10 ML UDC PO SCH (23:36)
[2023-02-03] VITALS (13 sets, daily range): BP systolic 102–140; PULSE 64–126; RESP 14–18; TEMP 97.6–102; O2SAT 94–99
[2023-02-03] MEDS: NACL 0.9% 1,000 ML IV SCH ×3 (05:00→17:15)
[2023-02-03] MEDS: INSULIN REGULAR, HUMAN 100 UNITS/ML, 3 ML VIAL (humuLIN R) SUBCUT PRN ×3 (05:28→17:19)
[2023-02-03 06:04] LABS: BASOPHILS % (AUTO) 0.4 % (0.0-2.0); EOSINOPHILS % (AUTO) 0.4 % (0.0-4.0); HEMATOCRIT 29.9 % (36-54); HEMOGLOBIN 9.2 g/dL (14.0-18.0); LYMPHOCYTES # (AUTO) 1.2 K/uL (1.0-5.5); LYMPHOCYTES % (AUTO) 12.2 % (20.5-51.5); MEAN CORPUSCULAR HEMOGLOBIN 27 pg (27-31); MEAN CORPUSCULAR HGB CONC 31 % (32-36); MEAN CORPUSCULAR VOLUME 86 fL (79.0-98.0); MONOCYTES # (AUTO) 0.7 K/uL (0.0-1.0); MONOCYTES % (AUTO) 7.2 % (1.7-9.3); NEUTROPHILS # (AUTO) 7.8 K/uL (1.8-7.7); NEUTROPHILS % (AUTO) 79.8 % (40.0-70.0); PLATELET COUNT (AUTO) 161 K/uL (130-430); RED BLOOD CELL COUNT(AUTO) 3.46 MIL/uL (4.2-6.2); RED CELL DISTRIBUTION WIDTH 17.6 % (9.0-15.0); WHITE BLOOD COUNT (AUTO) 9.7 K/uL (4.8-10.8)
[2023-02-03 07:00] LABS: CALCIUM 8.4 mg/dL (8.4-11.0); CREATININE 1.05 mg/dL (0.55-1.30); POTASSIUM 3.8 mmol/L (3.5-5.1)
[2023-02-03] MEDS ORDERED: CRANBERRY FRUIT GT SCH (09:00)
[2023-02-03] MEDS ORDERED: VITAMIN GT SCH (09:00)
[2023-02-03] MEDS: INSULIN GLARGINE 100 UNITS/ML, 10 ML VIAL SQ SCH ×2 (09:46→21:58)
[2023-02-03] MEDS: VANCOMYCIN HCL 750 MG in NS 250 ML IV SCH ×2 (09:52→21:37)
[2023-02-03] MEDS: CEFEPIME 1 GM in D5W 50 ML IV SCH (09:52)
[2023-02-03] MEDS: FERROUS SULFATE 300 MG/5 ML UDC PO SCH (09:52)
[2023-02-03] MEDS: ASCORBIC ACID 500 MG TABLET GT SCH ×2 (09:53→21:35)
[2023-02-03] MEDS: MULTIVITAMINS TAB 1 TABLET GT SCH (09:53)
[2023-02-03] MEDS: FAMOTIDINE 20 MG TABLET GT SCH (09:53)
[2023-02-03] MEDS: LANSOPRAZOLE 30 MG CAPSULE.DR GT SCH (09:53)
[2023-02-03] MEDS: levETIRAcetam 500 MG TABLET PO SCH ×2 (09:53→21:35)
[2023-02-03] MEDS: ATORVASTATIN 20 MG TABLET PO SCH (09:53)
[2023-02-03] MEDS: BISACODYL 5 MG TABLET.DR (DULCOLAX) PO SCH (09:53)
[2023-02-03] MEDS: DOCUSATE SODIUM 100 MG CAPSULE PO SCH ×2 (09:53→21:35)
[2023-02-03] MEDS: METOCLOPRAMIDE HCL 10 MG/10 ML UDC PO SCH ×2 (09:54→21:35)
[2023-02-03] MEDS: PIPERACILLIN/TAZO 3.375/DEX-IS 50 ML IV SCH (17:17)
[2023-02-03] MEDS: ENOXAPARIN SODIUM 30 MG/0.3 ML SYRINGE SUBCUT SCH (21:35)
[2023-02-03] MEDS: KCL 20 mEq in 0.45% NS 1000 mL 1,000 ML IV SCH (21:36)
[2023-02-03] MEDS: ACETAMINOPHEN 650 MG/20.3 ML UDC GT PRN (21:37)
[2023-02-04] VITALS (16 sets, daily range): BP systolic 94–114; PULSE 87–122; RESP 14–20; TEMP 98.1–99.9; O2SAT 94–99
[2023-02-04] MEDS ORDERED: ACETAMINOPHEN 650 MG/20.3 ML UDC GT PRN
[2023-02-04] MEDS: PIPERACILLIN/TAZO 3.375/DEX-IS 50 ML IV SCH ×5 (00:18→23:37)
[2023-02-04] MEDS: INSULIN REGULAR, HUMAN 100 UNITS/ML, 3 ML VIAL (humuLIN R) SUBCUT PRN ×5 (00:31→23:39)
[2023-02-04 06:12] LABS: BASOPHILS % (AUTO) 0.1 % (0.0-2.0); EOSINOPHILS # (AUTO) 0.2 K/uL (0.0-0.4); EOSINOPHILS % (AUTO) 1.6 % (0.0-4.0); HEMATOCRIT 30.2 % (36-54); HEMOGLOBIN 9.4 g/dL (14.0-18.0); LYMPHOCYTES # (AUTO) 1.2 K/uL (1.0-5.5); MEAN CORPUSCULAR HEMOGLOBIN 27 pg (27-31); MEAN CORPUSCULAR HGB CONC 31 % (32-36); MEAN CORPUSCULAR VOLUME 88 fL (79.0-98.0); MONOCYTES # (AUTO) 0.6 K/uL (0.0-1.0); MONOCYTES % (AUTO) 5.2 % (1.7-9.3); NEUTROPHILS # (AUTO) 8.7 K/uL (1.8-7.7); NEUTROPHILS % (AUTO) 82.1 % (40.0-70.0); PLATELET COUNT (AUTO) 162 K/uL (130-430); RED BLOOD CELL COUNT(AUTO) 3.46 MIL/uL (4.2-6.2); RED CELL DISTRIBUTION WIDTH 17.1 % (9.0-15.0); WHITE BLOOD COUNT (AUTO) 10.6 K/uL (4.8-10.8)
[2023-02-04 06:39] LABS: CALCIUM 9.8 mg/dL (8.4-11.0); CREATININE 0.99 mg/dL (0.55-1.30)
[2023-02-04] MEDS: KCL 20 mEq in 0.45% NS 1000 mL 1,000 ML IV SCH ×3 (06:42→18:30)
[2023-02-04] MEDS: LANSOPRAZOLE 30 MG CAPSULE.DR GT SCH (10:37)
[2023-02-04] MEDS: MULTIVITAMINS TAB 1 TABLET GT SCH (10:37)
[2023-02-04] MEDS: FAMOTIDINE 20 MG TABLET GT SCH (10:38)
[2023-02-04] MEDS: ASCORBIC ACID 500 MG TABLET GT SCH ×2 (10:38→20:59)
[2023-02-04] MEDS: DOCUSATE SODIUM 100 MG CAPSULE PO SCH ×2 (10:38→20:59)
[2023-02-04] MEDS: ATORVASTATIN 20 MG TABLET PO SCH (10:39)
[2023-02-04] MEDS: METOCLOPRAMIDE HCL 10 MG/10 ML UDC PO SCH ×2 (10:39→20:58)
[2023-02-04] MEDS: FERROUS SULFATE 300 MG/5 ML UDC PO SCH (10:39)
[2023-02-04] MEDS: BISACODYL 5 MG TABLET.DR (DULCOLAX) PO SCH (10:39)
[2023-02-04] MEDS: levETIRAcetam 500 MG TABLET PO SCH ×2 (10:39→20:59)
[2023-02-04] MEDS: INSULIN GLARGINE 100 UNITS/ML, 10 ML VIAL SQ SCH ×2 (10:43→21:00)
[2023-02-04] MEDS: ENOXAPARIN SODIUM 30 MG/0.3 ML SYRINGE SUBCUT SCH (21:00)
[2023-02-05] VITALS (19 sets, daily range): BP systolic 77–117; PULSE 71–113; RESP 14–19; TEMP 97.2–98.4; O2SAT 93–99
[2023-02-05] MEDS: KCL 20 mEq in 0.45% NS 1000 mL 1,000 ML IV SCH ×4 (01:46→20:55)
[2023-02-05] MEDS: PIPERACILLIN/TAZO 3.375/DEX-IS 50 ML IV SCH ×3 (05:40→17:18)
[2023-02-05] MEDS: BISACODYL 5 MG TABLET.DR (DULCOLAX) PO SCH (09:00)
[2023-02-05] MEDS: MULTIVITAMINS TAB 1 TABLET GT SCH (09:00)
[2023-02-05] MEDS: INSULIN GLARGINE 100 UNITS/ML, 10 ML VIAL SQ SCH ×2 (09:00→20:56)
[2023-02-05] MEDS: LANSOPRAZOLE 30 MG CAPSULE.DR GT SCH (09:00)
[2023-02-05] MEDS: FAMOTIDINE 20 MG TABLET GT SCH (09:00)
[2023-02-05] MEDS: DOCUSATE SODIUM 100 MG CAPSULE PO SCH ×2 (09:00→20:48)
[2023-02-05] MEDS: ATORVASTATIN 20 MG TABLET PO SCH (09:00)
[2023-02-05] MEDS: FERROUS SULFATE 300 MG/5 ML UDC PO SCH (09:00)
[2023-02-05] MEDS: ASCORBIC ACID 500 MG TABLET GT SCH ×2 (09:00→20:56)
[2023-02-05] MEDS: levETIRAcetam 500 MG TABLET PO SCH ×2 (09:00→20:55)
[2023-02-05] MEDS: METOCLOPRAMIDE HCL 10 MG/10 ML UDC PO SCH ×2 (09:00→20:55)
[2023-02-05] MEDS ORDERED: ONDANSETRON HCL 4 MG/2 ML VIAL ONE (09:02)
[2023-02-05] MEDS ORDERED: NS 500 ML IV.SOLN IV ONE (09:02)
[2023-02-05] MEDS ORDERED: NS IRRIG SOLN 1000 ML IR ONE (09:02)
[2023-02-05] MEDS ORDERED: SEVOFLURANE 15 MIN GAS INH ONE (09:02)
[2023-02-05] MEDS ORDERED: NS 250 ML BAG IV ONE (09:02)
[2023-02-05] MEDS ORDERED: METOCLOPRAMIDE HCL 10 MG/2 ML VIAL IVP PRN (09:30)
[2023-02-05] MEDS ORDERED: NALOXONE HCL 0.4 MG/ML AMP (NARCAN) IVP PRN (09:30)
[2023-02-05] MEDS ORDERED: HYDROmorphone 1 MG/ML INJ. CARTRIDGE IVP PRN (09:30)
[2023-02-05] MEDS ORDERED: MORPHINE 4 MG INJ. 4 MG/ML VIAL IVP PRN (09:30)
[2023-02-05] MEDS ORDERED: ONDANSETRON HCL 4 MG/2 ML VIAL IVP PRN (09:30)
[2023-02-05] MEDS ORDERED: KETOROLAC TROMETHAMINE 30 MG VIAL IVP PRN (09:30)
[2023-02-05 12:16] LABS: HEMATOCRIT 24.7 % (36-54); HEMOGLOBIN 7.6 g/dL (14.0-18.0)
[2023-02-05] MEDS ORDERED: MENTHOL/ZINC OXIDE 113 GM OINT. TP PRN (16:00)
[2023-02-05] MEDS ORDERED: BALSAM PERU/CASTOR OIL 56.7 GM OINT...G. TP ONE (16:00)
[2023-02-05] MEDS: INSULIN REGULAR, HUMAN 100 UNITS/ML, 3 ML VIAL (humuLIN R) SUBCUT PRN (17:22)
[2023-02-05] MEDS: ENOXAPARIN SODIUM 30 MG/0.3 ML SYRINGE SUBCUT SCH (20:56)
[2023-02-05] MEDS ORDERED: NOREPINEPHRINE 4 MG/4 ML VIAL IV ONE (23:46)
[2023-02-06] VITALS (56 sets, daily range): BP systolic 73–134; PULSE 63–114; RESP 14–28; TEMP 97.1–98.9; O2SAT 95–100
[2023-02-06] MEDS: PIPERACILLIN/TAZO 3.375/DEX-IS 50 ML IV SCH ×5 (00:03→23:53)
[2023-02-06] MEDS: NOREPINEPHRINE BITARTRATE 4 MG in NS 246 ML IV PRN ×2 (00:04→08:40)
[2023-02-06] MEDS: INSULIN REGULAR, HUMAN 100 UNITS/ML, 3 ML VIAL (humuLIN R) SUBCUT PRN ×5 (00:35→23:54)
[2023-02-06] MEDS: KCL 20 mEq in 0.45% NS 1000 mL 1,000 ML IV SCH ×2 (02:02→08:46)
[2023-02-06 05:18] LABS: BASOPHILS # (AUTO) 0.1 K/uL (0.0-0.2); BASOPHILS % (AUTO) 0.4 % (0.0-2.0); EOSINOPHILS # (AUTO) 0.8 K/uL (0.0-0.4); EOSINOPHILS % (AUTO) 4.9 % (0.0-4.0); HEMATOCRIT 25.3 % (36-54); HEMOGLOBIN 7.8 g/dL (14.0-18.0); LYMPHOCYTES # (AUTO) 2.1 K/uL (1.0-5.5); LYMPHOCYTES % (AUTO) 13.1 % (20.5-51.5); MEAN CORPUSCULAR HEMOGLOBIN 27 pg (27-31); MEAN CORPUSCULAR HGB CONC 31 % (32-36); MEAN CORPUSCULAR VOLUME 86 fL (79.0-98.0); MONOCYTES # (AUTO) 0.5 K/uL (0.0-1.0); MONOCYTES % (AUTO) 2.8 % (1.7-9.3); NEUTROPHILS # (AUTO) 12.5 K/uL (1.8-7.7); NEUTROPHILS % (AUTO) 78.8 % (40.0-70.0); PLATELET COUNT (AUTO) 256 K/uL (130-430); RED BLOOD CELL COUNT(AUTO) 2.93 MIL/uL (4.2-6.2); RED CELL DISTRIBUTION WIDTH 16.8 % (9.0-15.0); WHITE BLOOD COUNT (AUTO) 15.9 K/uL (4.8-10.8)
[2023-02-06 05:31] LABS: CALCIUM 8.9 mg/dL (8.4-11.0); CREATININE 0.83 mg/dL (0.55-1.30); POTASSIUM 4.2 mmol/L (3.5-5.1)
[2023-02-06] MEDS ORDERED: VANCOMYCIN HCL 1,250 MG in NS 250 ML IV SCH ×2 (06:00→16:00)
[2023-02-06] MEDS: MULTIVITAMINS TAB 1 TABLET GT SCH (08:36)
[2023-02-06] MEDS: DOCUSATE SODIUM 100 MG CAPSULE PO SCH ×2 (08:36→20:46)
[2023-02-06] MEDS: ATORVASTATIN 20 MG TABLET PO SCH (08:36)
[2023-02-06] MEDS: levETIRAcetam 500 MG TABLET PO SCH ×2 (08:36→20:47)
[2023-02-06] MEDS: LANSOPRAZOLE 30 MG CAPSULE.DR GT SCH (08:36)
[2023-02-06] MEDS: ASCORBIC ACID 500 MG TABLET GT SCH ×2 (08:36→20:46)
[2023-02-06] MEDS: BISACODYL 5 MG TABLET.DR (DULCOLAX) PO SCH (08:36)
[2023-02-06] MEDS: METOCLOPRAMIDE HCL 10 MG/10 ML UDC PO SCH ×2 (08:36→20:47)
[2023-02-06] MEDS: FAMOTIDINE 20 MG TABLET GT SCH (08:37)
[2023-02-06] MEDS: FERROUS SULFATE 300 MG/5 ML UDC PO SCH (08:37)
[2023-02-06] MEDS: INSULIN GLARGINE 100 UNITS/ML, 10 ML VIAL SQ SCH ×2 (08:38→20:53)
[2023-02-06] MEDS ORDERED: HYDROCORTISONE SOD SUCC 100 MG/2 ML VIAL IVP ONE (14:15)
[2023-02-06] MEDS: NACL 0.9% 1,000 ML IV SCH ×3 (15:38→23:53)
[2023-02-06] MEDS: BALSAM PERU/CASTOR OIL 56.7 GM OINT...G. TP SCH (15:40)
[2023-02-06] MEDS ORDERED: VANCOMYCIN HCL 1,250 MG in NS 250 ML IV ONE (16:00)
[2023-02-06] MEDS ORDERED: TIGECYCLINE 100 MG in NS 100 ML IV ONE (16:15)
[2023-02-06] MEDS: ACETAMINOPHEN 650 MG/20.3 ML UDC GT PRN ×2 (17:00→23:52)
[2023-02-06] MEDS: ENOXAPARIN SODIUM 30 MG/0.3 ML SYRINGE SUBCUT SCH (20:47)
[2023-02-06] MEDS: HYDROCORTISONE SOD SUCC 100 MG/2 ML VIAL IVP SCH (20:51)
[2023-02-07] VITALS (36 sets, daily range): BP systolic 93–144; PULSE 54–86; RESP 14–25; TEMP 96.5–98.5; O2SAT 97–100
[2023-02-07 05:23] LABS: BASOPHILS % (AUTO) 0.5 % (0.0-2.0); EOSINOPHILS % (AUTO) 0.2 % (0.0-4.0); HEMATOCRIT 22.3 % (36-54); LYMPHOCYTES # (AUTO) 0.8 K/uL (1.0-5.5); LYMPHOCYTES % (AUTO) 9.6 % (20.5-51.5); MEAN CORPUSCULAR HEMOGLOBIN 27 pg (27-31); MEAN CORPUSCULAR HGB CONC 31 % (32-36); MEAN CORPUSCULAR VOLUME 87 fL (79.0-98.0); MONOCYTES # (AUTO) 0.2 K/uL (0.0-1.0); MONOCYTES % (AUTO) 2.2 % (1.7-9.3); NEUTROPHILS # (AUTO) 7.5 K/uL (1.8-7.7); NEUTROPHILS % (AUTO) 87.5 % (40.0-70.0); PLATELET COUNT (AUTO) 215 K/uL (130-430); RED BLOOD CELL COUNT(AUTO) 2.58 MIL/uL (4.2-6.2); RED CELL DISTRIBUTION WIDTH 17.1 % (9.0-15.0); WHITE BLOOD COUNT (AUTO) 8.6 K/uL (4.8-10.8)
[2023-02-07 05:51] LABS: CALCIUM 8.5 mg/dL (8.4-11.0); CREATININE 0.91 mg/dL (0.55-1.30); POTASSIUM 3.8 mmol/L (3.5-5.1)
[2023-02-07] MEDS: PIPERACILLIN/TAZO 3.375/DEX-IS 50 ML IV SCH ×2 (05:59→11:57)
[2023-02-07] MEDS: HYDROCORTISONE SOD SUCC 100 MG/2 ML VIAL IVP SCH ×3 (05:59→21:56)
[2023-02-07] MEDS ORDERED: VANCOMYCIN HCL 1,250 MG in NS 250 ML IV SCH (06:00)
[2023-02-07] MEDS: INSULIN REGULAR, HUMAN 100 UNITS/ML, 3 ML VIAL (humuLIN R) SUBCUT PRN ×3 (06:02→18:08)
[2023-02-07] MEDS: NOREPINEPHRINE BITARTRATE 4 MG in NS 246 ML IV PRN (08:04)
[2023-02-07] MEDS: FAMOTIDINE 20 MG TABLET GT SCH (08:36)
[2023-02-07] MEDS: FERROUS SULFATE 300 MG/5 ML UDC PO SCH (08:36)
[2023-02-07] MEDS: METOCLOPRAMIDE HCL 10 MG/10 ML UDC PO SCH ×2 (08:36→20:39)
[2023-02-07] MEDS: ASCORBIC ACID 500 MG TABLET GT SCH ×2 (08:36→20:39)
[2023-02-07] MEDS: ATORVASTATIN 20 MG TABLET PO SCH (08:37)
[2023-02-07] MEDS: MULTIVITAMINS TAB 1 TABLET GT SCH (08:37)
[2023-02-07] MEDS: levETIRAcetam 500 MG TABLET PO SCH ×2 (08:37→20:39)
[2023-02-07] MEDS: LANSOPRAZOLE 30 MG CAPSULE.DR GT SCH (08:37)
[2023-02-07] MEDS: DOCUSATE SODIUM 100 MG CAPSULE PO SCH ×2 (08:37→20:39)
[2023-02-07] MEDS: BISACODYL 5 MG TABLET.DR (DULCOLAX) PO SCH (08:37)
[2023-02-07] MEDS: INSULIN GLARGINE 100 UNITS/ML, 10 ML VIAL SQ SCH ×2 (08:48→21:20)
[2023-02-07] MEDS: BALSAM PERU/CASTOR OIL 56.7 GM OINT...G. TP SCH (08:49)
[2023-02-07] MEDS: NACL 0.9% 1,000 ML IV SCH ×2 (11:30→18:10)
[2023-02-07] MEDS: ENOXAPARIN SODIUM 30 MG/0.3 ML SYRINGE SUBCUT SCH (20:39)
[2023-02-07] MEDS: TIGECYCLINE 50 MG in NS 100 ML IV SCH (20:41)
[2023-02-07] MEDS: MEROPENEM 1 GM IVPB PREMIX 50 ML IV SCH (21:55)
[2023-02-08] VITALS (36 sets, daily range): BP systolic 113–161; PULSE 60–118; RESP 14–20; TEMP 96.5–96.8; O2SAT 98–100
[2023-02-08] MEDS: NACL 0.9% 1,000 ML IV SCH ×4 (00:35→19:55)
[2023-02-08] MEDS: INSULIN REGULAR, HUMAN 100 UNITS/ML, 3 ML VIAL (humuLIN R) SUBCUT PRN ×6 (00:39→23:20)
[2023-02-08 05:43] LABS: BASOPHILS % (AUTO) 0.1 % (0.0-2.0); EOSINOPHILS % (AUTO) 0.1 % (0.0-4.0); HEMATOCRIT 22.7 % (36-54); LYMPHOCYTES # (AUTO) 0.8 K/uL (1.0-5.5); LYMPHOCYTES % (AUTO) 10.6 % (20.5-51.5); MEAN CORPUSCULAR HEMOGLOBIN 27 pg (27-31); MEAN CORPUSCULAR HGB CONC 31 % (32-36); MEAN CORPUSCULAR VOLUME 87 fL (79.0-98.0); MONOCYTES # (AUTO) 0.2 K/uL (0.0-1.0); MONOCYTES % (AUTO) 2.4 % (1.7-9.3); NEUTROPHILS # (AUTO) 6.8 K/uL (1.8-7.7); NEUTROPHILS % (AUTO) 86.8 % (40.0-70.0); PLATELET COUNT (AUTO) 181 K/uL (130-430); RED BLOOD CELL COUNT(AUTO) 2.63 MIL/uL (4.2-6.2); RED CELL DISTRIBUTION WIDTH 16.6 % (9.0-15.0); WHITE BLOOD COUNT (AUTO) 7.9 K/uL (4.8-10.8)
[2023-02-08] MEDS: HYDROCORTISONE SOD SUCC 100 MG/2 ML VIAL IVP SCH ×3 (06:25→21:10)
[2023-02-08] MEDS: MEROPENEM 1 GM IVPB PREMIX 50 ML IV SCH ×2 (06:25→13:29)
[2023-02-08 06:50] LABS: ALBUMIN 1.1 g/dL (3.4-4.8); CALCIUM 8.5 mg/dL (8.4-11.0); CREATININE 0.68 mg/dL (0.55-1.30); POTASSIUM 3.2 mmol/L (3.5-5.1); TOTAL BILIRUBIN 0.3 mg/dL (0.0-1.0); TOTAL PROTEIN, SERUM 6.3 g/dL (6.4-8.3)
[2023-02-08] MEDS: FERROUS SULFATE 300 MG/5 ML UDC PO SCH (08:30)
[2023-02-08] MEDS: DOCUSATE SODIUM 100 MG CAPSULE PO SCH ×2 (08:30→21:08)
[2023-02-08] MEDS: MULTIVITAMINS TAB 1 TABLET GT SCH (08:31)
[2023-02-08] MEDS: METOCLOPRAMIDE HCL 10 MG/10 ML UDC PO SCH ×2 (08:31→21:07)
[2023-02-08] MEDS: LANSOPRAZOLE 30 MG CAPSULE.DR GT SCH (08:31)
[2023-02-08] MEDS: levETIRAcetam 500 MG TABLET PO SCH ×2 (08:31→21:08)
[2023-02-08] MEDS: ATORVASTATIN 20 MG TABLET PO SCH (08:31)
[2023-02-08] MEDS: ASCORBIC ACID 500 MG TABLET GT SCH ×2 (08:32→21:07)
[2023-02-08] MEDS: FAMOTIDINE 20 MG TABLET GT SCH (08:33)
[2023-02-08] MEDS: TIGECYCLINE 50 MG in NS 100 ML IV SCH ×2 (08:34→21:09)
[2023-02-08] MEDS: BISACODYL 5 MG TABLET.DR (DULCOLAX) PO SCH (08:35)
[2023-02-08] MEDS: BALSAM PERU/CASTOR OIL 56.7 GM OINT...G. TP SCH (08:36)
[2023-02-08] MEDS: INSULIN GLARGINE 100 UNITS/ML, 10 ML VIAL SQ SCH ×2 (08:58→21:32)
[2023-02-08] MEDS: VANCOMYCIN HCL ORAL SOLUTION 125 MG/5 ML, 150 ML PO SCH ×2 (17:25→21:09)
[2023-02-08] MEDS ORDERED: LORazepam 2 MG/ML VIAL IVP PRN (21:00)
[2023-02-08] MEDS: LACTOBACILLUS RHAMNOSUS GG 1 CAP CAPSULE PO SCH (21:07)
[2023-02-08] MEDS: ENOXAPARIN SODIUM 30 MG/0.3 ML SYRINGE SUBCUT SCH (21:08)
[2023-02-09] VITALS (35 sets, daily range): BP systolic 100–165; PULSE 51–89; RESP 14–22; TEMP 96.2–97.7; O2SAT 97–100
[2023-02-09] MEDS: NACL 0.9% 1,000 ML IV SCH ×2 (03:14→06:38)
[2023-02-09 04:48] LABS: BASOPHILS % (AUTO) 0.1 % (0.0-2.0); HEMATOCRIT 30.1 % (36-54); HEMOGLOBIN 9.4 g/dL (14.0-18.0); LYMPHOCYTES # (AUTO) 0.9 K/uL (1.0-5.5); LYMPHOCYTES % (AUTO) 15.3 % (20.5-51.5); MEAN CORPUSCULAR HEMOGLOBIN 27 pg (27-31); MEAN CORPUSCULAR HGB CONC 31 % (32-36); MEAN CORPUSCULAR VOLUME 86 fL (79.0-98.0); MONOCYTES # (AUTO) 0.2 K/uL (0.0-1.0); MONOCYTES % (AUTO) 3.4 % (1.7-9.3); NEUTROPHILS # (AUTO) 4.6 K/uL (1.8-7.7); NEUTROPHILS % (AUTO) 81.2 % (40.0-70.0); PLATELET COUNT (AUTO) 169 K/uL (130-430); RED BLOOD CELL COUNT(AUTO) 3.49 MIL/uL (4.2-6.2); RED CELL DISTRIBUTION WIDTH 18.6 % (9.0-15.0); WHITE BLOOD COUNT (AUTO) 5.6 K/uL (4.8-10.8)
[2023-02-09 05:07] LABS: CALCIUM 8.6 mg/dL (8.4-11.0); CREATININE 0.51 mg/dL (0.55-1.30)
[2023-02-09 05:16] LABS: POTASSIUM 2.9 mmol/L (3.5-5.1)
[2023-02-09] MEDS: HYDROCORTISONE SOD SUCC 100 MG/2 ML VIAL IVP SCH ×3 (06:10→21:34)
[2023-02-09] MEDS: INSULIN REGULAR, HUMAN 100 UNITS/ML, 3 ML VIAL (humuLIN R) SUBCUT PRN ×2 (06:21→18:22)
[2023-02-09] MEDS: FAMOTIDINE 20 MG TABLET GT SCH (09:19)
[2023-02-09] MEDS: POTASSIUM CHLORIDE 20 MEQ/PKT PACKET GT SCH ×2 (09:19→12:07)
[2023-02-09] MEDS: levETIRAcetam 500 MG TABLET PO SCH ×2 (09:20→21:22)
[2023-02-09] MEDS: FERROUS SULFATE 300 MG/5 ML UDC PO SCH (09:20)
[2023-02-09] MEDS: LANSOPRAZOLE 30 MG CAPSULE.DR GT SCH (09:20)
[2023-02-09] MEDS: METOCLOPRAMIDE HCL 10 MG/10 ML UDC PO SCH ×2 (09:20→21:22)
[2023-02-09] MEDS: LACTOBACILLUS RHAMNOSUS GG 1 CAP CAPSULE PO SCH ×2 (09:20→21:22)
[2023-02-09] MEDS: DOCUSATE SODIUM 100 MG CAPSULE PO SCH ×2 (09:20→21:22)
[2023-02-09] MEDS: ATORVASTATIN 20 MG TABLET PO SCH (09:20)
[2023-02-09] MEDS: MULTIVITAMINS TAB 1 TABLET GT SCH (09:21)
[2023-02-09] MEDS: ASCORBIC ACID 500 MG TABLET GT SCH ×2 (09:21→21:22)
[2023-02-09] MEDS: BISACODYL 5 MG TABLET.DR (DULCOLAX) PO SCH (09:21)
[2023-02-09] MEDS: INSULIN GLARGINE 100 UNITS/ML, 10 ML VIAL SQ SCH ×2 (09:24→21:32)
[2023-02-09] MEDS: VANCOMYCIN HCL ORAL SOLUTION 125 MG/5 ML, 150 ML PO SCH ×4 (09:24→21:27)
[2023-02-09] MEDS: TIGECYCLINE 50 MG in NS 100 ML IV SCH ×2 (09:26→21:25)
[2023-02-09] MEDS: BALSAM PERU/CASTOR OIL 56.7 GM OINT...G. TP SCH (10:05)
[2023-02-09] MEDS: ENOXAPARIN SODIUM 30 MG/0.3 ML SYRINGE SUBCUT SCH (21:22)
[2023-02-10] VITALS (31 sets, daily range): BP systolic 98–147; PULSE 50–87; RESP 14–24; TEMP 96.6–98; O2SAT 95–100
[2023-02-10] MEDS: NACL 0.9% 1,000 ML IV SCH ×2 (00:07→20:57)
[2023-02-10] MEDS: INSULIN REGULAR, HUMAN 100 UNITS/ML, 3 ML VIAL (humuLIN R) SUBCUT PRN ×2 (00:14→11:01)
[2023-02-10] MEDS: HYDROCORTISONE SOD SUCC 100 MG/2 ML VIAL IVP SCH ×3 (05:23→21:01)
[2023-02-10 05:50] LABS: BASOPHILS % (AUTO) 0.1 % (0.0-2.0); HEMATOCRIT 32.2 % (36-54); HEMOGLOBIN 10.1 g/dL (14.0-18.0); LYMPHOCYTES # (AUTO) 1.1 K/uL (1.0-5.5); LYMPHOCYTES % (AUTO) 16.1 % (20.5-51.5); MEAN CORPUSCULAR HEMOGLOBIN 27 pg (27-31); MEAN CORPUSCULAR HGB CONC 31 % (32-36); MEAN CORPUSCULAR VOLUME 87 fL (79.0-98.0); MONOCYTES # (AUTO) 0.2 K/uL (0.0-1.0); MONOCYTES % (AUTO) 3.1 % (1.7-9.3); NEUTROPHILS # (AUTO) 5.6 K/uL (1.8-7.7); NEUTROPHILS % (AUTO) 80.7 % (40.0-70.0); PLATELET COUNT (AUTO) 203 K/uL (130-430); RED BLOOD CELL COUNT(AUTO) 3.71 MIL/uL (4.2-6.2); RED CELL DISTRIBUTION WIDTH 18.8 % (9.0-15.0); WHITE BLOOD COUNT (AUTO) 6.9 K/uL (4.8-10.8)
[2023-02-10 06:17] LABS: POTASSIUM 3.1 mmol/L (3.5-5.1)
[2023-02-10 06:18] LABS: CALCIUM 8.7 mg/dL (8.4-11.0); CREATININE 0.54 mg/dL (0.55-1.30)
[2023-02-10] MEDS: DOCUSATE SODIUM 100 MG CAPSULE PO SCH ×2 (09:00→20:57)
[2023-02-10] MEDS: INSULIN GLARGINE 100 UNITS/ML, 10 ML VIAL SQ SCH ×2 (09:00→21:06)
[2023-02-10] MEDS: BISACODYL 5 MG TABLET.DR (DULCOLAX) PO SCH (09:00)
[2023-02-10] MEDS: METOCLOPRAMIDE HCL 10 MG/10 ML UDC PO SCH ×2 (09:00→20:57)
[2023-02-10] MEDS: TIGECYCLINE 50 MG in NS 100 ML IV SCH ×2 (09:00→20:57)
[2023-02-10] MEDS: MULTIVITAMINS TAB 1 TABLET GT SCH (10:03)
[2023-02-10] MEDS: levETIRAcetam 500 MG TABLET PO SCH ×2 (10:03→20:57)
[2023-02-10] MEDS: LACTOBACILLUS RHAMNOSUS GG 1 CAP CAPSULE PO SCH ×2 (10:04→20:57)
[2023-02-10] MEDS: FAMOTIDINE 20 MG TABLET GT SCH (10:04)
[2023-02-10] MEDS: ASCORBIC ACID 500 MG TABLET GT SCH ×2 (10:04→20:56)
[2023-02-10] MEDS: LANSOPRAZOLE 30 MG CAPSULE.DR GT SCH (10:04)
[2023-02-10] MEDS: FERROUS SULFATE 300 MG/5 ML UDC PO SCH (10:05)
[2023-02-10] MEDS: BALSAM PERU/CASTOR OIL 56.7 GM OINT...G. TP SCH (10:07)
[2023-02-10] MEDS: VANCOMYCIN HCL ORAL SOLUTION 125 MG/5 ML, 150 ML PO SCH (10:10)
[2023-02-10] MEDS: ATORVASTATIN 20 MG TABLET PO SCH (11:13)
[2023-02-10] MEDS: POTASSIUM CHLORIDE 20 MEQ TAB.PRT.SR PO SCH ×2 (11:13→15:13)
[2023-02-10] MEDS: FIDAXOMICIN 200 MG TABLET PO SCH (20:58)
[2023-02-10] MEDS: ENOXAPARIN SODIUM 30 MG/0.3 ML SYRINGE SUBCUT SCH (20:58)
[2023-02-11] VITALS (18 sets, daily range): BP systolic 128–146; PULSE 64–95; RESP 16–19; TEMP 96.5–98; O2SAT 30–100
[2023-02-11] MEDS: HYDROCORTISONE SOD SUCC 100 MG/2 ML VIAL IVP SCH ×3 (05:12→23:48)
[2023-02-11] MEDS: INSULIN REGULAR, HUMAN 100 UNITS/ML, 3 ML VIAL (humuLIN R) SUBCUT PRN ×2 (05:18→13:29)
[2023-02-11 06:25] LABS: BASOPHILS # (AUTO) 0.1 K/uL (0.0-0.2); BASOPHILS % (AUTO) 0.7 % (0.0-2.0); HEMATOCRIT 34.2 % (36-54); HEMOGLOBIN 10.6 g/dL (14.0-18.0); LYMPHOCYTES # (AUTO) 1.2 K/uL (1.0-5.5); LYMPHOCYTES % (AUTO) 13.3 % (20.5-51.5); MEAN CORPUSCULAR HEMOGLOBIN 27 pg (27-31); MEAN CORPUSCULAR HGB CONC 31 % (32-36); MEAN CORPUSCULAR VOLUME 87 fL (79.0-98.0); MONOCYTES # (AUTO) 0.3 K/uL (0.0-1.0); MONOCYTES % (AUTO) 3.9 % (1.7-9.3); NEUTROPHILS # (AUTO) 7.2 K/uL (1.8-7.7); NEUTROPHILS % (AUTO) 82.1 % (40.0-70.0); PLATELET COUNT (AUTO) 223 K/uL (130-430); RED BLOOD CELL COUNT(AUTO) 3.92 MIL/uL (4.2-6.2); RED CELL DISTRIBUTION WIDTH 19.2 % (9.0-15.0); WHITE BLOOD COUNT (AUTO) 8.8 K/uL (4.8-10.8)
[2023-02-11 06:40] LABS: CALCIUM 8.8 mg/dL (8.4-11.0); CREATININE 0.62 mg/dL (0.55-1.30); POTASSIUM 3.7 mmol/L (3.5-5.1)
[2023-02-11] MEDS: LACTOBACILLUS RHAMNOSUS GG 1 CAP CAPSULE PO SCH ×2 (10:23→23:41)
[2023-02-11] MEDS: MULTIVITAMINS TAB 1 TABLET GT SCH (10:23)
[2023-02-11] MEDS: levETIRAcetam 500 MG TABLET PO SCH ×2 (10:23→23:43)
[2023-02-11] MEDS: BISACODYL 5 MG TABLET.DR (DULCOLAX) PO SCH (10:23)
[2023-02-11] MEDS: ASCORBIC ACID 500 MG TABLET GT SCH ×2 (10:23→23:38)
[2023-02-11] MEDS: FAMOTIDINE 20 MG TABLET GT SCH (10:23)
[2023-02-11] MEDS: METOCLOPRAMIDE HCL 10 MG/10 ML UDC PO SCH ×2 (10:23→23:43)
[2023-02-11] MEDS: LANSOPRAZOLE 30 MG CAPSULE.DR GT SCH (10:23)
[2023-02-11] MEDS: FIDAXOMICIN 200 MG TABLET PO SCH ×2 (10:24→23:42)
[2023-02-11] MEDS: ATORVASTATIN 20 MG TABLET PO SCH (10:24)
[2023-02-11] MEDS: DOCUSATE SODIUM 100 MG CAPSULE PO SCH ×2 (10:24→21:00)
[2023-02-11] MEDS: FERROUS SULFATE 300 MG/5 ML UDC PO SCH (10:24)
[2023-02-11] MEDS: TIGECYCLINE 50 MG in NS 100 ML IV SCH ×2 (10:25→23:39)
[2023-02-11] MEDS: INSULIN GLARGINE 100 UNITS/ML, 10 ML VIAL SQ SCH ×2 (10:46→23:46)
[2023-02-11] MEDS: BALSAM PERU/CASTOR OIL 56.7 GM OINT...G. TP SCH (12:19)
[2023-02-11] MEDS ORDERED: VANCOMYCIN HCL ORAL SOLUTION 125 MG/5 ML, 150 ML PO SCH (17:00)
[2023-02-11] MEDS: NACL 0.9% 1,000 ML IV SCH (17:40)
[2023-02-11] MEDS: VANCOMYCIN HCL ORAL SOLUTION 125 MG/5 ML, 150 ML GT SCH ×2 (17:40→23:36)
[2023-02-11] MEDS: ENOXAPARIN SODIUM 30 MG/0.3 ML SYRINGE SUBCUT SCH (23:47)
[2023-02-12] VITALS (12 sets, daily range): BP systolic 123–152; PULSE 50–90; RESP 14–16; TEMP 97.5–98.4; O2SAT 98–100
[2023-02-12] MEDS: HYDROCORTISONE SOD SUCC 100 MG/2 ML VIAL IVP SCH ×2 (06:31→13:41)
[2023-02-12] MEDS: DOCUSATE SODIUM 100 MG CAPSULE PO SCH (09:00)
[2023-02-12] MEDS: BISACODYL 5 MG TABLET.DR (DULCOLAX) PO SCH (09:00)
[2023-02-12] MEDS: METOCLOPRAMIDE HCL 10 MG/10 ML UDC PO SCH (10:32)
[2023-02-12] MEDS: TIGECYCLINE 50 MG in NS 100 ML IV SCH (10:32)
[2023-02-12] MEDS: FIDAXOMICIN 200 MG TABLET PO SCH (10:32)
[2023-02-12] MEDS: VANCOMYCIN HCL ORAL SOLUTION 125 MG/5 ML, 150 ML GT SCH ×2 (10:32→13:40)
[2023-02-12] MEDS: LACTOBACILLUS RHAMNOSUS GG 1 CAP CAPSULE PO SCH (10:33)
[2023-02-12] MEDS: FAMOTIDINE 20 MG TABLET GT SCH (10:33)
[2023-02-12] MEDS: LANSOPRAZOLE 30 MG CAPSULE.DR GT SCH (10:33)
[2023-02-12] MEDS: ASCORBIC ACID 500 MG TABLET GT SCH (10:34)
[2023-02-12] MEDS: FERROUS SULFATE 300 MG/5 ML UDC PO SCH (10:34)
[2023-02-12] MEDS: MULTIVITAMINS TAB 1 TABLET GT SCH (10:34)
[2023-02-12] MEDS: levETIRAcetam 500 MG TABLET PO SCH (10:34)
[2023-02-12] MEDS: ATORVASTATIN 20 MG TABLET PO SCH (10:34)
[2023-02-12] MEDS: INSULIN GLARGINE 100 UNITS/ML, 10 ML VIAL SQ SCH (10:45)
[2023-02-12] MEDS: BALSAM PERU/CASTOR OIL 56.7 GM OINT...G. TP SCH (10:47)
== END 2023-02-12 16:05 | DRG 870 ==
LOC: SED 11:58 → SIC 17:14 → STU 21:58 → SIC 02-05 23:27 → STU 02-10 16:41
PROVIDERS: ADMIT Family Medicine; ATTEND Family Medicine
PROC: 02HV33Z Insertion of Infusion Device into Superior Vena Cava, Percutaneous Approach (ICD-10-PCS; 2023-02-02)
PROC: B548ZZA Ultrasonography of Superior Vena Cava, Guidance (ICD-10-PCS; 2023-02-02)
PROC: 0J9N0ZZ Drainage of Right Lower Leg Subcutaneous Tissue and Fascia, Open Approach (ICD-10-PCS; 2023-02-05)
PROC: 5A1955Z Respiratory Ventilation, Greater than 96 Consecutive Hours (ICD-10-PCS; principal; 2023-02-05 09:02)
PROC: 30233N1 Transfusion of Nonautologous Red Blood Cells into Peripheral Vein, Percutaneous Approach (ICD-10-PCS; 2023-02-08)
DX: A41.9 Sepsis, unspecified organism (principal); E43 Unspecified severe protein-calorie malnutrition; R65.21 Severe sepsis with septic shock; J18.9 Pneumonia, unspecified organism; E87.1 Hypo-osmolality and hyponatremia; Z99.11 Dependence on respirator [ventilator] status; N39.0 Urinary tract infection, site not specified; L02.415 Cutaneous abscess of right lower limb; J96.11 Chronic respiratory failure with hypoxia; A04.72 Enterocolitis due to Clostridium difficile, not specified as recurrent; N17.9 Acute kidney failure, unspecified; E86.0 Dehydration; R13.10 Dysphagia, unspecified; E78.5 Hyperlipidemia, unspecified; K21.9 Gastro-esophageal reflux disease without esophagitis; F41.9 Anxiety disorder, unspecified; D64.9 Anemia, unspecified; I48.91 Unspecified atrial fibrillation; I10 Essential (primary) hypertension; E11.9 Type 2 diabetes mellitus without complications; Z86.73 Personal history of transient ischemic attack (TIA), and cerebral infarction without residual deficits; Z93.0 Tracheostomy status; Z68.28 Body mass index [BMI] 28.0-28.9, adult
CPT/HCPCS: 36415; 71045; 73560-TC; 80048; 80053; 81000; 82962; 83605; 83735; 84484; 85018; 85025; 85610-TC; 85730-TC; 86886; 86900; 86901; 86920; 87040; 87070; 87070-TC; 87075-TC; 87081; 87086; 87101; 87205-TC; 87230-TC; 93005; 94002; 94003; 94640; 94760; 99291; G0378; J0692; J1650; J1720; J1815; J2185; J2405; J2543; J3243; J3370; J3480; J7040; J7050; J7060; J8597; P9021